=== PATIENT | male | born 1965 ===

== ENCOUNTER 2019-09-24 08:54 | Outpatient (CLI) | payer OTHER, SELFPAY ==
--- NOTE | 2019-09-24 | EST_ITS ---
Patient Info Name: Mook French Age: 54 years : 1965 Gender: Male Ht: 72 in Wt: 215 lbs BSA: 2.25 m2 HR: 79 bpm BP: 142 / 86 mmHg Heart Rhythm: Sinus Rhythm Technical Quality: Good, Fair Exam Date: 09/24/2019 9:34 AM Exam Location: [facility] Pulmonary Exam Room: stress lab Patient Status: Outpatient Admit Date: 09/24/2019 Staff Ordering Physician: PHYSICIAN NOT ON STAFF, NONSTAFF [place]: Emmie Asencio RCS Attending Provider: KORTNEY LIRIANO Exercise Technologist: Gatito Salazar RDCS, RT Nurse: Kortney Liriano ANP, VIKASP- Exam Type: CA stress echo Study Info Indications - chest pain /ppm Treadmill exercise stress echocardiogram is performed. Summary 1. Left ventricular systolic function is lower limits of normal EF 50-55% with paradoxical septal wall motion due to LBBB. 2. Normal sinus rhythm. 3. Left bundle branch block. 4. Indeterminate for myocardial ischemia due to resting left bundle branch block. 5. Occasional stress-induced PVCs. 6. Left ventricular systolic function improved with reduce cavity size, increased contractility with persistent paradoxical septal wall motion reducing sensitivity/specificity for myocardial ischemia. No other new wall motion abnormalities identified. 7. Overall, no clear echocardiographic evidence of myocardial ischemia, however, baseline left bundle-branch block and paradoxical septal wall motion confounds interpretation. 8. Recommend alternative stress modality such as Lexiscan nuclear perfusion stress test if clinically indicated to increased sensitivity and specificity for myocardial ischemia. 9. Very good exercise capacity for age achieving 103% of age predicted maximum heart rate and 12.1 METS at peak exercise. Patient demonstrated a normal heart rate and hypertensive blood pressure response to exercise. Recommendations * Recommend alternative stress modality such as Lexiscan nuclear perfusion stress test if clinically indicated to increased sensitivity and specificity for myocardial ischemia. Stress Echo Findings Left Ventricle Left ventricular systolic function improved with reduce cavity size, increased contractility with persistent paradoxical septal wall motion reducing sensitivity/specificity for myocardial ischemia. No other new wall motion abnormalities identified. Left Ventricle Left ventricular systolic function is lower limits of normal EF 50-55% with paradoxical septal wall motion due to LBBB. Protocol: [place] Stress ECG Details Stage: REST Duration (min): 1 min : 1 sec Speed (mph): 0.0 Grade (%): 0 HR (bpm): 69 SBP (mmHg): 127 DBP (mmHg): 93 METS: --- Stage: REST Duration (min): 36 min : 33 sec Speed (mph): 0.0 Grade (%): 0 HR (bpm): 85 SBP (mmHg): 127 DBP (mmHg): 93 METS: --- Stage: STAGE 1 Duration (min): 1 min : 0 sec Speed (mph): 1.7 Grade (%): 10 HR (bpm): 94 SBP (mmHg): 127 DBP (mmHg): 93 METS: --- Stage: STAGE 1 Duration (min): 2 min : 0 sec Speed (mph): 1.7 Grade (%): 10 HR (bpm): 103 SBP (mmHg): 127 DBP (mmHg): 93 METS: --- Stage: STAGE 1 Duration (min): 3 min : 0 sec Speed (mph): 1.7 Grade (%): 10 HR (bpm): 98 SBP (mmHg): 139 DBP (mmHg):
== END 2019-09-24 08:55 | disposition home or self-care (01) ==
LOC: ANHCARD 08:57
DX: R07.9 Chest pain, unspecified (principal)
CPT/HCPCS: 93351

== ENCOUNTER → 2021-01-03 14:11 | Outpatient (REF) | payer OTHER, SELFPAY | LOC: ANHLAB 14:11 | PROVIDERS: Visit Provider Nurse Practitioner | DX: L81.4 Other melanin hyperpigmentation (principal) | CPT/HCPCS: 88305 ==